=== PATIENT | female | born 1970 | race Caucasian/White ===

== ENCOUNTER → 2017-05-26 | Outpatient (CLI) | payer BC | LOC: CIMAGING 12:38 | PROVIDERS: ATTEND Family Medicine | DX: N92.1 Excessive and frequent menstruation with irregular cycle (principal) | CPT/HCPCS: 76856-PO ==

== ENCOUNTER → 2017-05-30 | Outpatient (CLI) | payer BC | LOC: CIMAGING 07:57 | PROVIDERS: ATTEND Family Medicine | DX: Z12.31 Encounter for screening mammogram for malignant neoplasm of breast (principal) | CPT/HCPCS: G0202 ==

== ENCOUNTER → 2017-06-27 | Outpatient (CLI) | payer BC | LOC: CIMAGING 12:47 | PROVIDERS: ATTEND Family Medicine | DX: R92.8 Other abnormal and inconclusive findings on diagnostic imaging of breast (principal) | CPT/HCPCS: 76641-PO; G0204 ==

== ENCOUNTER 2017-08-29 05:44 | Day surgery (SDC) | payer BC ==
--- NOTE | 2017-08-26 17:18 | PDGENHP ---
History and Physical - Chief Complaint LEFT Hip Pain - History of Present Illness Diagnosis: 1. Right hip dysplasia with resultant labral tear 2. Right Femoroacetabular impingement (REED) Mixed type, with resultant labral tear 3. ~~Right sided iliopsoas HISTORY OF PRESENT ILLNESS: Estelais a 47 y.o.~very active female~who I have had the pleasure to consult on today. I have enjoyed meeting her~and her mother, Priyanka.~~She lives in [place] ; she is with three children (ages 19, 16, and 12). 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 ~Her hobbies include triathlon, hiking, tennis and dancing. ~She grew up performing ballerina and swimming. Neisha's right hip pain started in November and got severe in December. ~She describes some~previous complaints and with no~recalled trauma or injury. Of note, she broke her tailbone three years ago while tubing in [place]. ~Her physician at that time informed her that her right hip was "tight", but no intervention occurred. Presentation is of anterior right hip pain. ~She also has pain laterally and posteriorly. The hip does~wake her~at night and does~click and catch on her. Sitting can be a real struggle for her. Esteladoes~report suffering from lower back pain episodes. Estelahas not~participated in physical therapy and has not~tried other conservative measures. ~She takes an occasional ibuprofen and acetaminophen, but denies use of narcotics. She~has not~received sufficient symptomatic improvement. She denies major issues with the left hip, though it has started to non painfully grind and snap. Estelaunderstands that she~has a hip and pelvis problem which should be researched and wishes to get a better understanding of her~hip status, followed by an establishment of a treatment strategy, hoping sheSobiawould be able to get back to her~well being active life. History: Past medical history: Seasonal allergies Exercise-induced asthma, controlled Relevant familial history: None which is relevant Past surgical history: None Esteladenies problematic issues with general anesthesia in the past. I have reviewed, verified and agree with the past medical, surgical, family and social history. Current Medications:~currently has no medications in their medication list. ALLERGIES:~~has no known allergies. Objective: Physical Examination: Estelais 5 feet 8 inches tall and weighs 140 Lbs. Patient is AAO X3; she is well-nourished, in NAD. ~Skin is warm and dry. ~ Breathing is non-labored. ~CV with RRR by pulse. ~Abdomen is soft, NTND. Currently, she~walks with a slightly antalgic gait. She~has no leg length discrepancy and presents with no~signs of joint laxity. She~is fit looking. ~~ Trendelenburg sign is negative and proprioception is normal, both~sides. Lower spine examination is negative for sciatic or femoral nerve irritation with negative SLR &~femoral stretch tests. Range of motion of the spine is normal~for flexion, extension, and rotations, with no associated pain. SIJs examination is produces pain on both sides (L>>>R) with normal~KIRK in relation and local tenderness. Strength, Sensation and pulses are normal - bilaterally Ankles and knees exams are normal~and no~mal-alignment is evident. Hip ROM (degrees): ER At 90~hip FL IR At 90~hip FL IR Neutral hip ER Neutral hip AB AD FL EX R 50 pain 40 pain 55 20 50 15 100 pain 0-5 pain L 50 ~45 65 0-5 45 10 95 10 Specific hip and pelvis tests: Quadrant KIRK Roll Add. Longus R +++ +++ ++ Negative L + ++ (posterior) Negative Negative Glut. Med ITB Pos. Imp R Negative but weak Negative but weak Negative L Negative Negative Negative Squeeze test measured normal. Bony Symphysis pubis is pain free to touch while concentric activity of the rectus abdominis, does not~produce pain at its insertion. Ilio Psos specific tests are positive for pain during cycling for the right hip~ and remarkable for painful snap~on the right~and negative for pain during cycling for the left hip~and remarkable for non painful snap on the left hip Greater trochanteric burse is pain free on both hips. Piriformis tests: FAIR is negative, with no local signs of neuritis related to sciatic nerve. Thigh circumference is symmetric with no evidence for muscle atrophy on either~ side. Hamstrings tests are negative for ~functional contraction and negative for ~ tendinopathy Imaging: Radiology studies which I have personally reviewed, analyzed and measured are below: XR: AP of the hip and pelvis: Performed in a good technique Specific measurements show: NSA~ Lat. Cam LCE Lat. Pincer C.Over~sign Act. Depth A.I~% Head~Coverage % Sourcil~Angle ATDmm R n - 5.7 - ~- n 38 57 20 n L n - 21 - - n 48 70 10 n Sharp's angle for the right is 53, for the left is 46. [place] Lines are broken on the right,~preserved on the left. Minimal Pathological signs are seen in the Symphysis Pubis. Minimal Pathological signs are seen at the Ischial tuberosity. ~~~~~~~~~~~~~ Pos. wall sign Sup. Lat. OA Joint Space-WBZ Joint Space-Medial SALT R Negative + 5.1 mm 5.5 mm 13 mm P/A wall distance 16~mm L Negative Negative 4.9 mm 6.2 mm 8.4 mm P/A wall distance 19.4~mm Sclerosis ~~Dysplasia Cysts ISS R Negative +++ Negative Negative L Negative + Negative Negative X Table lateral: Anterior cam lesion is not seen MRI shows: hypertrophic, dysplastic-style torn labrum with thick joint cartilage without evidence of indirect signs of joint deterioration, no signs for sub-chondral cysts, fraying of the labrum, hypertrophic tissue within the fovea Impression and plan: Estelais a 47 y.o.~active female~suffering from symptomatic right hip pain due to hip dysplasia, on going REED Mixed type, with~resultant labral tear, and iliopsoas causing significant disability to her~and altering her~sport and life activities. Physical examination, imaging, and her~story correspond with the diagnosis mentioned above. I have explained the diagnosis and its significance to Estelaand we have discussed the various possible treatment options and their implications with her. These include proceeding with conservative treatment while continuing to modify her~activities to avoid aggravating the hip further, resuming anti pain medications or intra articular injections (when needed) which can give temporary relief, a hip arthroscopy aiming to address the above pathology and a hip arthroscopy aiming to address the above pathology followed by periacetabular osteotomy (GRIS). Estelawill review the info presented. ~Prior to surgery we will obtain d- GEMRIC MRI to quantitatively evaluate the quality or her cartilage, as well as to assess the extent of soft tissue and chondral injury. CT with 3D recon will be done in order to determine femoral torsion and to pre plan an accurate and optimal volume and location of bony resection. We asked her to return to clinic once the imaging modalities have been obtained should she desires. ~If she has adequate information, she may proceed with scheduling surgeries without seeing us again in clinic. Neisha~is happy with this plan. I have also supplied her~with handouts, outlining the expected surgical treatment and rehab involved. I wish Neisha~all the best, ~~ Emma West, PAC Hardy Flores and I saw and evaluated the patient together. ~I wrote the note during the visit; Dr. Flores's input is reflected here. History Information - Allergies/Home Medication List Allergies/Adverse Reactions: No Known Allergies Allergy (Verified 08/26/17 15:07) I have personally reviewed and updated: medical history - Social History Smoking Status: Never smoked Review of Systems Review of Systems: Physical Exam Physical Exam:
[2017-08-29] MEDS ORDERED: ceFAZolin 2 GM/SWFI 2 GM/20 ML SYR IVP ONE (06:02)
[2017-08-29] MEDS ORDERED: PREGABALIN 150 MG CAP PO ONE (06:02)
[2017-08-29] MEDS ORDERED: ACETAMINOPHEN 500 MG TAB PO ONE (06:02)
[2017-08-29] MEDS ORDERED: LIDOCAINE 1% 2 ML INJ ONE (06:10)
[2017-08-29] MEDS ORDERED: LR 1,000 ML IV ONE (06:16)
[2017-08-29] MEDS ORDERED: LIDOCAINE 1% 300 MG/30 ML SDV ONE (06:28)
[2017-08-29] MEDS ORDERED: SCOPOLAMINE HYDROBROMIDE 1 MG/3 DAYS PATCH TD ONE (06:43)
--- NOTE | 2017-08-29 06:56 | PDANEPAE ---
ANE History of Present Illness 47 yo female with retained L hip hardware for removal. ANE Past Medical History - Cardiovascular History Hx Hypertension: No Hx Arrhythmias: No Hx Chest Pain: No Hx Coronary Artery / Peripheral Vascular Disease: No Hx CHF / Valvular Disease: No Hx Palpitations: No - Pulmonary History Hx COPD: No Hx Asthma/Reactive Airway Disease: No Hx Recent Upper Respiratory Infection: No Hx Oxygen in Use at Home: No Hx Sleep Apnea: No Sleep Apnea Screening Result - Last Documented: Negative - Neurologic History Hx Cerebrovascular Accident: No Hx Seizures: No Hx Dementia: No - Endocrine History Hx Diabetes: No Hypothyroid: No Obesity: no - Renal History Hx Renal Disorders: No - Liver History Hx Hepatic Disorders: No - Neurological & Psychiatric Hx Hx Neurological and Psychiatric Disorders: No - Cancer History Hx Cancer: No - Congenital Disorder History Hx Congenital Disorders: No - GI History Hx Gastrointestinal Disorders: No - Other Health History Other Health History: none - Chronic Pain History Chronic Pain: No - Surgical History Prior Surgeries: 2 hip reconstructions,2 scopes, 1revison constance,1 hardware removal ANE Review of Systems Review of Systems: - Exercise capacity METS (RN): 5 METS - Systems Constitutional: Reports: no symptoms Respiratory: Reports: no symptoms (did have a URI (nasal congestion and drainage , fever x2 days) about 10 days prior. No cough.) ANE Patient History - Allergies Allergies/Adverse Reactions: No Known Allergies Allergy (Verified 08/26/17 15:07) - Home Medications Home Medications: Ibuprofen 400 mg PO 08/29/17 [Last Taken 1 Week Ago ~08/22/17] - NPO status NPO Status: no food or drink >8 hours NPO Since - Liquids (Date): 08/28/17 NPO Since - Liquids (Time): 21:00 NPO Since - Solids (Date): 08/28/17 NPO Since - Solids (Time): 21:00 - Anes Hx Anes Hx: post operative nausea and vomiting - Smoking Hx Smoking Status: Never smoked Marijuana use: No - Family Anes Hx Family Anes Hx: neg - N/A Family Hx Anesthesia Complications: none ANE Labs/Vital Signs - Vital Signs Blood Pressure: 106/76 Heart Rate: 62 Respiratory Rate: 16 O2 Sat (%): 96 Height: 175.26 cm Weight: 63.957 kg ANE Physical Exam - Airway Neck exam: FROM Mallampati Score: Class 2 Mouth exam: normal dental/mouth exam - Pulmonary Pulmonary: clear to auscultation - Cardiovascular Cardiovascular: regular rate and rhythym - ASA Status ASA Status: II ANE Anesthesia Plan Anesthesia Plan: general endotracheal anesthesia
[2017-08-29] MEDS ORDERED: DEXAMETHASONE 4 MG/ML VIAL ONE ×2 (07:09→07:16)
[2017-08-29] MEDS ORDERED: PROPOFOL/EMULSION 500 MG/50 ML BOTTLE IV ONE ×2 (07:09→07:13)
[2017-08-29] MEDS ORDERED: fentaNYL 100 MCG/2 ML INJ ONE ×2 (07:09→08:36)
[2017-08-29] MEDS ORDERED: BUPIVACAINE/EPI 0.5% 30 ML SDV ONE (07:37)
[2017-08-29] MEDS ORDERED: ONDANSETRON 4 MG/2 ML VIAL ONE (07:48)
[2017-08-29] MEDS ORDERED: NALOXONE HCL 0.4 MG/ML INJ IVP PRN (07:57)
[2017-08-29] MEDS ORDERED: fentaNYL 100 MCG/2 ML INJ IVP PRN (07:57)
[2017-08-29] MEDS ORDERED: ALBUTEROL 3 ML DEYVIAL IH PRN (07:57)
[2017-08-29] MEDS ORDERED: DIAZEPAM 10 MG/2 ML SYR IVP PRN (07:57)
[2017-08-29] MEDS ORDERED: LR 500 ML IV PRN (07:57)
[2017-08-29] MEDS ORDERED: PROMETHAZINE HCL 25 MG/ML INJ IVP PRN (07:57)
--- NOTE | 2017-08-29 08:17 | POSTANESTH ---
Post Anesthetic Evaluation Cardiovascular Status: Normal, Stable Respiratory Status: Normal, Stable Level of Consciousness/Mental Status: Can Participate in Eval, Mildly Sleepy, Arousable Pain Control: Adequate, Prn Tx Ordered Nausea/Vomiting Control: Adequate, Prn Tx Ordered Complications Possibly Related to Anesthesia: None Noted
[2017-08-29 08:25] VITALS: TEMP 97.2
[2017-08-29] MEDS ORDERED: PROMETHAZINE HCL 25 MG/ML INJ ONE (09:20)
[2017-08-29 09:31] VITALS: BP 109/70; PULSE 69; RESP 16; O2SAT 100
== END 2017-08-29 10:40 | disposition home or self-care (01) ==
LOC: FSGY 05:44
PROVIDERS: ATTEND Orthopaedic Surgery Sports Medicine
PROC: 0QP304Z Removal of Internal Fixation Device from Left Pelvic Bone, Open Approach (ICD-10-PCS; principal; 2017-08-29 07:15)
DX: T84.84XA Pain due to internal orthopedic prosthetic devices, implants and grafts, initial encounter (principal); Q65.89 Other specified congenital deformities of hip; M25.851 Other specified joint disorders, right hip
CPT/HCPCS: J0690; J1100; J2405; J2550; J2704; J3010